=== PATIENT | female | born 1960 | race Caucasian/White ===

== ENCOUNTER → 2016-02-22 | Outpatient (CLI) | payer OTHER ==
[~2016-02-22] MED LIST: NAPR-1169 PO
== END | disposition home or self-care (01) ==
LOC: C.CPL 14:37
PROVIDERS: ATTEND Orthopaedic Surgery Sports Medicine
DX: S43.004D Unspecified dislocation of right shoulder joint, subsequent encounter (principal); X58.XXXD Exposure to other specified factors, subsequent encounter